=== PATIENT | female | born 1960 | race Native Hawaiian/Other Pacific Islander ===

== ENCOUNTER 2019-08-01 15:26 | Emergency (ER) | payer BC, OTHER ==
--- NOTE | 2019-08-01 16:02 | Event Note ---
ED Screening Note Date of service: 08/01/19 Time: 16:01 ED Screening Note: 59 y o f with a hx of asthma was sent here by pcp for wheezing and sob This initial assessment/diagnostic orders/clinical plan/treatment(s) is/are subject to change based on patients health status, clinical progression and re- assessment by fellow clinical providers in the ED. Further treatment and workup at subsequent clinical providers discretion. Patient/guardian urged not to elope from the ED as their condition may be serious if not clinically assessed and managed. Initial orders include: cxr acc eval
--- NOTE | 2019-08-01 17:06 | XRay Report ---
CHEST 1 VIEW INDICATION: productive cough and wheeziing. COMPARISON: None. FINDINGS: Support devices: None. Heart: Within normal limits. Lungs/Pleura: No acute air space or interstitial disease. Additional findings: None. IMPRESSION: No acute abnormality. Signer Name: Reid Brooks MD Signed: 08/01/2019 5:02 PM Workstation Name: [id number]
--- NOTE | 2019-08-01 22:35 | Emergency Department Report ---
ED General Adult HPI - General Chief complaint: Upper Respiratory Infection Stated complaint: WHEEZING Time Seen by Provider: 08/01/19 21:11 Source: patient, spanish interpreter Mode of arrival: Ambulatory Limitations: Language Barrier - Related Data Previous Rx's Medication Instructions Recorded Last Taken Type Albuterol Sulfate [Proair 90 mcg IH Q6HR #1 aer.pow.ba 08/01/19 Unknown Rx Respiclick] guaiFENesin/CODEINE [Robitussin AC] 5 ml PO Q6H PRN #120 ml 08/01/19 Unknown Rx predniSONE [Deltasone] 50 mg PO QDAY #5 tab 08/01/19 Unknown Rx Allergies Allergy/AdvReac Type Severity Reaction Status Date / Time No Known Allergies Allergy Unverified 08/01/19 15:52 ED Review of Systems ROS: Stated complaint: WHEEZING Other details as noted in HPI Comment: All other systems reviewed and negative ED Past Medical Hx - Past Medical History Previous Medical History?: Yes Hx Asthma: Yes - Surgical History Past Surgical History?: Yes Additional Surgical History: ,hysterectomy, hernia repair - Social History Smoking Status: Never Smoker Substance Use Type: None - Medications Home Medications: Home Medications Medication Instructions Recorded Confirmed Last Taken Type Albuterol Sulfate [Proair 90 mcg IH Q6HR #1 aer.pow. 08/01/19 Unknown Rx Respiclick] guaiFENesin/CODEINE [Robitussin AC] 5 ml PO Q6H PRN #120 ml 08/01/19 Unknown Rx predniSONE [Deltasone] 50 mg PO QDAY #5 tab 08/01/19 Unknown Rx ED Physical Exam - General Limitations: Language Barrier General appearance: alert, in no apparent distress - Head Head exam: Present: atraumatic, normocephalic - Eye Eye exam: Present: normal appearance - ENT ENT exam: Present: mucous membranes moist - Neck Neck exam: Present: normal inspection - Respiratory Respiratory exam: Present: normal lung sounds bilaterally, rhonchi. Absent: respiratory distress, chest wall tenderness, accessory muscle use, decreased breath sounds - Cardiovascular Cardiovascular Exam: Present: regular rate, normal rhythm. Absent: systolic murmur, diastolic murmur, rubs, gallop - GI/Abdominal GI/Abdominal exam: Present: soft, normal bowel sounds - Extremities Exam Extremities exam: Present: normal inspection - Back Exam Back exam: Present: normal inspection - Neurological Exam Neurological exam: Present: alert, oriented X3 - Psychiatric Psychiatric exam: Present: normal affect, normal mood - Skin Skin exam: Present: warm, dry, intact, normal color. Absent: rash ED Course Vital Signs 08/01/19 15:49 Temperature 98.3 F Pulse Rate 60 Respiratory 14 Rate Blood Pressure 175/69 O2 Sat by Pulse 97 Oximetry ED Medical Decision Making - Radiology Data Radiology results: report reviewed Print Report Referring Physician:FLOR[place] Raya Name:JOSE LUIS ALFAROPatient ID:[id number] of :[id number]:FemaleAccession:[id number] Date:[id number] Status:Finalized Findings [facility] [address] [place] [address] XRay Report Signed Patient: JOSE LUIS ALFARO MR#: [id number] : 1960 Acct:[id number] Age/Sex: 59 / F ADM Date: 08/01/19 Loc: ED Attending Dr: Ordering Physician: DENYS NESS Date of Service: 08/01/19 Procedure(s): XR chest 1V ap Accession Number(s): [id number] cc: DENYS NESS Fluoro Time In Minutes: CHEST 1 VIEW INDICATION: productive cough and wheeziing. COMPARISON: None. FINDINGS: Support devices: None. Heart: Within normal limits. Lungs/Pleura: No acute air space or interstitial disease. Additional findings: None. IMPRESSION: No acute abnormality. Signer Name: Reid Brooks MD Signed: 08/01/2019 5:02 PM Workstation Name: [id number] Transcribed By: ES Dictated By: Reid Brooks MD Electronically Authenticated By: Reid Brooks MD Signed Date/Time: 08/01/191701 DD/ 01 TD/TT: - Medical Decision Making This patient presents with acute cough, most consistent with bronchitis. Differential diagnosis includes asthma, bronchitis, hyperreactive airway. Presentation not consistent with acute bacterial pneumonia, influenza, asthma, transient airway hyperresponsiveness. Presentation not consistent with chronic causes of cough (including GERD, asthma, postnasal discharge, medication side effect, CHF, lung cancer or mass). Plan: Normal CXR, supportive care, reassess Critical care attestation.: If time is entered above; I have spent that time in minutes in the direct care of this critically ill patient, excluding procedure time. ED Disposition Clinical Impression: Bronchitis Disposition: DC-01 TO HOME OR SELFCARE Is pt being admited?: No Does the pt Need Aspirin: No Condition: Stable Instructions: Chronic Bronchitis (ED), Acute Bronchitis (ED) Prescriptions: predniSONE [Deltasone] 50 mg PO QDAY #5 tab Albuterol Sulfate [Proair Respiclick] 90 mcg IH Q6HR #1 aer.pow.ba guaiFENesin/CODEINE [Robitussin AC] 5 ml PO Q6H PRN #120 ml PRN Reason: Cough Referrals: MARCIN UNDERWOOD MD [Primary Care Provider] - 3-5 Days
[2019-08-01 23:09] VITALS: BP 145/75
== END 2019-08-01 23:09 | disposition home or self-care (01) ==
LOC: ED 15:26
DX: J40 Bronchitis, not specified as acute or chronic (principal); Z90.710 Acquired absence of both cervix and uterus
CPT/HCPCS: 71045; 99283